=== PATIENT | female | born 1990 | race Caucasian/White ===

== ENCOUNTER 2021-12-12 14:18 | Emergency (ER) | payer OTHER, MEDICAID, SELFPAY ==
--- NOTE | ~2021-12-12 | CT_ITS ---
EXAMINATION: CT brain wo con INDICATION: Headache COMPARISON: 05/27/2009 TECHNIQUE: Standard unenhanced head CT. The dose-length product (DLP) was 605.33 mGy-cm. The mA was a djusted according to patient size. Iterative reconstruction technique was employed. FINDINGS: There is no intracranial hemorrhage, acute infarction, or abnormal mass lesion. The ventric les are normal. There is no abnormal mass effect or midline shift. The pereira-white matter differentiat ion is normal. The basal cisterns are patent. The orbits are normal. The paranasal sinuses, mastoids and calvarium are normal. IMPRESSION: 1. No acute intracranial abnormality. Reviewed, dictated and finalized at location F.
--- NOTE | ~2021-12-12 | XR_ITS ---
EXAMINATION: XR lumbar spine min 4V DATE: 12/12/2021 18:30 INDICATION: Low back pain TECHNIQUE: Anteroposterior, lateral, and bilateral oblique views of the lumbar spine, and cone-down l ateral view of the lumbosacral junction were obtained. COMPARISON: None. FINDINGS: Bone alignment is normal. There is no fracture. The vertebral body heights and intervertebr al disc spaces are normal. An IUD is noted. There are surgical changes in the left upper quadrant whi ch appear to involve the stomach. IMPRESSION: 1. No acute osseous abnormality. Reviewed, dictated and finalized at location F.
--- NOTE | ~2021-12-12 | CT_ITS ---
EXAMINATION: CT cervical spine wo con DATE: 12/12/2021 17:39 INDICATION: Head injury TECHNIQUE: Computed tomography (CT) of the cervical spine was performed without intravenous contrast. The dose-length product (DLP) was 369.90 mGy-cm. Automated exposure control and iterative reconstruc tion technique were employed. COMPARISON: None FINDINGS: There is mild loss of intervertebral disc space height at C4-5. The vertebral body heights are maintained. Alignment is normal. There is no fracture. The odontoid is intact. The prevertebral s oft tissues are normal. IMPRESSION: 1. Mild cervical spondylosis without acute findings. Reviewed, dictated and finalized at location F.
[2021-12-12 14:29] VITALS: BP 146/97; PULSE 95; RESP 20; TEMP 36.6; O2SAT 100
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
[2021-12-12] MEDS: KETOROLAC (*BKC) 60 MG/2 ML VIAL IM (18:42)
== END 2021-12-12 19:55 | disposition home or self-care (01) ==
PROVIDERS: Emergency Provider Emergency Medicine; PCP Family Medicine
DX: S16.1XXA Strain of muscle, fascia and tendon at neck level, initial encounter (principal); E03.9 Hypothyroidism, unspecified; Z87.891 Personal history of nicotine dependence; M47.812 Spondylosis without myelopathy or radiculopathy, cervical region; V49.50XA Passenger injured in collision with unspecified motor vehicles in traffic accident, initial encounter
CPT/HCPCS: 70450; 72110; 72125; 96372; 99284; J1885

== ENCOUNTER 2022-10-25 16:51 | Emergency (ER) | payer OTHER, SELFPAY ==
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
--- NOTE | ~2022-10-25 | CT_ITS ---
EXAMINATION: CT thoracic spine wo con DATE: 10/26/2022 01:22 INDICATION: Thoracic spine injury. TECHNIQUE: Computed tomography (CT) of the thoracic spine was performed without intravenous contrast. Automated exposure control and iterative reconstruction technique were employed. The dose-length pro duct was 1416.44 mGy-cm. COMPARISON: None FINDINGS: There is left supraclavicular fat stranding, consistent with contusion. There is a small sl iding hiatal hernia. There are surgical changes in the stomach. There is 3 degrees dextrocurvature of thoracic spine. There is mild chronic anterior wedging of T6 and T7 vertebral bodies. There is mildl y decreased disc height at multiple levels in thoracic spine. There are endplate osteophytes at most levels. There is multilevel mild facet joint osteoarthritis. No neural foraminal stenosis. There is m ild central canal stenosis at T6-T7 and T7-T8. IMPRESSION: 1. No fracture. 2. Mild thoracic spondylosis. Reviewed, dictated and finalized at location A.
--- NOTE | ~2022-10-25 | XR_ITS ---
EXAMINATION: XR knee RT 3V DATE: 10/26/2022 01:53 INDICATION: Right knee injury. TECHNIQUE: 3 views of right knee were obtained. COMPARISON: Right knee radiographs 03/02/2004 FINDINGS: Bone alignment is normal. No fracture. There is mild tricompartmental osteoarthritis. There is chondrocalcinosis of the menisci. There are dystrophic calcifications involving the cartilage. No knee joint effusion. There is pretibial soft tissue swelling. IMPRESSION: 1. Mild right knee osteoarthritis. Reviewed, dictated and finalized at location A.
--- NOTE | ~2022-10-25 | CT_ITS ---
EXAMINATION: CT brain wo con DATE: 10/26/2022 01:22 INDICATION: Head injury. TECHNIQUE: Computed tomography (CT) of the head was performed without intravenous contrast. The mA wa s adjusted according to patient size. Iterative reconstruction technique was employed. The dose-lengt h product was 605.33 mGy-cm. COMPARISON: Head CT 12/12/2021 FINDINGS: There is no intracranial hemorrhage, acute infarction, or abnormal intracranial mass lesion . The ventricles are normal in size. The paranasal sinuses are clear. The mastoid air cells are lino l. IMPRESSION: 1. Normal brain. Reviewed, dictated and finalized at location A. IMPRESSION: 1. Normal brain.
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
--- NOTE | ~2022-10-25 | XR_ITS ---
EXAMINATION: XR shoulder RT min 2V DATE: 10/26/2022 01:53 INDICATION: Right shoulder injury. TECHNIQUE: 4 views of right shoulder were obtained. COMPARISON: None. FINDINGS: Bone alignment is normal. No fracture. Joint spaces are normal. IMPRESSION: 1. Normal right shoulder. Reviewed, dictated and finalized at location A. IMPRESSION: 1. Normal right shoulder.
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
--- NOTE | ~2022-10-25 | CT_ITS ---
EXAMINATION: CT chest abdomen pelvis w con DATE: 10/26/2022 01:22 INDICATION: Chest and abdominal injury. TECHNIQUE: Computed tomography (CT) of the chest, abdomen, and pelvis was performed with 75 mL Omnipa que 350 intravenous contrast. Automated exposure control and iterative reconstruction technique were employed. The dose-length product was 1691.15 mGy-cm. COMPARISON: None FINDINGS: CHEST CT: There is an 8 mm nodule in left upper lobe, likely benign given the patient's age. There is mild depe ndent atelectasis bilaterally. No pleural effusion. The heart size is normal. No pericardial effusion . There is a small sliding hiatal hernia. There are surgical changes in the stomach. There is fat str anding in left supraclavicular region and in the right anterior superior chest wall, consistent with contusions. There is mild thoracic spondylosis. ABDOMEN/PELVIS CT: The liver, gallbladder, spleen, pancreas, adrenal glands, and kidneys are normal. There is an intraut erine device in expected position. There are no dilated loops of bowel. The appendix is not visualize d. There are no pathologically enlarged lymph nodes. There is no free intraperitoneal fluid. There is mild subcutaneous fat stranding in anterior abdominal wall, consistent with contusion. There is mild lumbar spondylosis. IMPRESSION: 1. Body wall contusions. Reviewed, dictated and finalized at location A. IMPRESSION: 1. Body wall contusions.
[2022-10-25 17:41] VITALS: BP 136/90; PULSE 120; RESP 16; TEMP 36.9; O2SAT 99
[2022-10-25 23:12] VITALS: BP 140/92; PULSE 88; RESP 15; O2SAT 100
[2022-10-25] MEDS: fentaNYL CITRATE INJ (*CRX) 100 MCG/2 ML VIAL 50 MCG IV PUSH (23:25)
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
[2022-10-25 23:54] LABS: Basophils Absolute Auto 0.1 K/mm3 (0.0-0.1); Basophils Percent Auto 0.5 % (0.2-1.2); Eosinophils Absolute Auto 0.1 K/mm3 (0-0.3); Eosinophils Percent Auto 0.9 % (0-4.4); Hematocrit 42.7 % (37.0-47.0); Hemoglobin 14.4 g/dL (12.0-15.0); Immature Granulocyte Absolute 0.04 K/mm3 (0.00-0.031); Immature Granulocyte Percent A 0.4 % (0-0.5); Lymphocytes Absolute Auto 2.96 K/mm3 (0.9-3.2); Lymphocytes Percent Auto 28.4 % (18.3-44.2); Mean Corpuscular HGB Conc 33.7 g/dl (32-36); Mean Corpuscular Volume 97.7 fl (80-100); Mean Platelet Volume 9.3 fl (7.4-10.4); Monocytes Percent Auto 9.8 % (2.6-8.5); Neutrophils Absolute Auto 6.3 K/mm3 (1.3-6.7); Platelet Count Result 302 k/mm3 (150-375); Red Blood Count 4.37 M/mm3 (4.2-5.4); Red Cell Distribution Width 12.2 % (11.5-14.5); White Blood Count 10.4 K/mm3 (4.5-10.0)
[2022-10-26] MEDS: ONDANSETRON INJ 4 MG/2 ML VIAL IV PUSH (00:01)
[2022-10-26] MEDS: LACTATED RINGERS 1,000 ML 999 ML IV CONT ×2 (00:01→02:30)
[2022-10-26 00:03] LABS: Ethanol 70 mg/dL (<10); Lactic Acid Reflex 3.4 mmol/L (0.7-2.0)
[2022-10-26 00:04] LABS: Prothrombin Time 14.2 Seconds (11.1-14.7)
[2022-10-26 00:05] LABS: Partial Thromboplastin Time 25.4 SECONDS (22.3-36.8)
[2022-10-26 00:06] LABS: Alanine Aminotransferase 26 U/L (6-35); Albumin Level 4.6 g/dL (3.5-5.1); Alkaline Phosphatase 75 U/L (38-126); Anion Gap 12 mmol/L (8-16); Aspartate Amino Transferase 39 U/L (14-36); Bilirubin,Total 0.5 mg/dL (0.2-1.3); Blood Urea Nitrogen 10 mg/dL (7-17); Calcium 8.8 mg/dL (8.4-10.2); Carbon Dioxide 20 mmol/L (22-30); Chloride 106 mmol/L (98-107); Creatine Kinase 489 U/L (30-135); Estimated CRCL calculation 121 ml/min; Estimated Glomerular Filt Rate > 60; Glucose 77 mg/dL (65-110); Lipase 66 U/L (23-300); Magnesium 1.8 mg/dL (1.6-2.3); Potassium 4.1 mmol/L (3.4-5.0); Sodium 138 mmol/L (137-145)
[2022-10-26 00:15] LABS: Troponin I < 0.012 ng/mL (0.000-0.034)
[2022-10-26 00:29] LABS: SPREG INTERNAL CONTROL Positive; Serum Qual hCG Negative
[2022-10-26] MEDS: MORPHINE SULFATE (*CRX) 4 MG/ML INJ IV PUSH (00:43)
[2022-10-26 02:52] LABS: Reflex Lactic Acid Yes or No Add Lactic
[2022-10-26] MEDS: KETOROLAC 15 MG/ML VIAL (*BKC) IV PUSH (03:29)
[2022-10-26 04:28] LABS: Lactic Acid 1.6 mmol/L (0.7-2.0)
[2022-10-26 04:59] VITALS: BP 138/81; PULSE 81; RESP 15; O2SAT 100
== END 2022-10-26 05:02 | disposition home or self-care (01) ==
PROVIDERS: Emergency Provider Student in an Organized Health Care Education/Training Program; PCP Nurse Practitioner Family
DX: S40.022A Contusion of left upper arm, initial encounter (principal); S50.11XA Contusion of right forearm, initial encounter; S30.1XXA Contusion of abdominal wall, initial encounter; S20.211A Contusion of right front wall of thorax, initial encounter; S40.012A Contusion of left shoulder, initial encounter; S80.211A Abrasion, right knee, initial encounter; S09.90XA Unspecified injury of head, initial encounter; T14.8XXA Other injury of unspecified body region, initial encounter; E03.9 Hypothyroidism, unspecified; M17.11 Unilateral primary osteoarthritis, right knee; M47.814 Spondylosis without myelopathy or radiculopathy, thoracic region; M47.812 Spondylosis without myelopathy or radiculopathy, cervical region; V49.40XA Driver injured in collision with unspecified motor vehicles in traffic accident, initial encounter
CPT/HCPCS: 36415; 70450; 70498; 71046; 71260; 72040; 72125; 72128; 73030; 73562; 74177; 80053; 80307; 82550; 83605; 83690; 83735; 84484; 84703; 85025; 85610; 85730; 86850; 86900; 86901; 96361; 96374; 96375; 99284; J1885; J2270; J2405; J3010; J7120; Q9967